=== PATIENT | female | born 1970 | race Caucasian/White ===

== ENCOUNTER 2020-11-26 17:45 | Emergency (ER) | payer OTHER, SELFPAY ==
[2020-11-26 20:55] VITALS: BP 144/63; PULSE 70; RESP 18; TEMP 35.6; O2SAT 96; BMI 39.5
[2020-11-26 22:37] VITALS: BP 128/54; PULSE 81; RESP 16; TEMP 36.7; O2SAT 96
--- NOTE | 2020-11-26 22:51 | ED_ITS ---
HPI - General Adult General Chief complaint: Eye Problems Stated complaint: EYE IRRITATION Time Seen by Provider: 11/26/20 22:35 Source: patient Mode of arrival: ambulatory Limitations: no limitations History of Present Illness HPI narrative: 50-year-old female who presents emergency department for evaluation redness, swelling and drainage of purulent material from the right eye. Patient states that she has been having swelling of her right eye since Tuesday, 3 days prior to evaluation. She states that she did have a tele medicine consult by her PCP who started her on doxycycline and she has taken 3 doses of this medication. She followed up today with [facility] and there was discussion about starting the patient on an IV antibiotic and a topical antibiotic however the patient states that they did not give her IV medications secondary to her penicillin allergy and she does not believe that a topical medication was called to pharmacy. She states that she was applying warm compresses and she states that her eye is now draining purulent material. She also states she has an itchy burning sensation in her eye. She denies any change in vision. She denies headache, nausea, vomiting, fatigue, cough fever or chills. Related Data Previous Rx's Medication Instructions Recorded erythromycin 1 appl OPHTHALMIC (EYE) TID 7 Days 11/26/20 #3.5 g Allergies Allergy/AdvReac Type Severity Reaction Status Date / Time Penicillins [PCN] Allergy Anaphylaxis Verified 11/26/20 20:55 adhesive tape AdvReac Redness of Verified 11/26/20 20:55 Skin hydrocodone AdvReac Agitated Verified 11/26/20 20:55 hydromorphone [From Dilaudid] AdvReac Nausea and Verified 11/26/20 20:55 Vomiting sulfamethoxazole AdvReac Nausea and Verified 11/26/20 20:55 [From Bactrim] Vomiting trimethoprim [From Bactrim] AdvReac Nausea and Verified 11/26/20 20:55 Vomiting Review of Systems Review of Systems: Yes all other systems are reviewed and are negative Neurologic: Reports Abnormal speech present [facility] Past Medical History [facility] Narrative: Patient states that she has pre diabetes, she denies tobacco, alcohol and drug use. Social History Social History Smoking Status: Never smoker Use of substances other than those prescribed or required for medical reasons: No Substance Use Type: Former Substance User Advance Directives: No Advance Directives Information Provided: No Physical Exam Vital Signs: Vital Signs: Last Vital Signs Temp 98.1 F 11/26/20 22:37 Pulse 81 11/26/20 22:37 Resp 16 11/26/20 22:37 BP 128/54 L 11/26/20 22:37 Pulse Ox 96 11/26/20 22:37 Body Mass Index 39.5 Const: General: cooperative Nutritional Appearance: overweight Haris entation/consciousness: oriented to person and oriented to place Limitations: no limitations HENMT: Head: Yes normal to inspection, Yes No palpable skull fracture present and Yes normocephalic Ears: hearing grossly normal bilaterally General nose exam: Normal external nose present Face and sinus: Yes normal facial exam, No sinuses nontender and Yes face symmetric Eyes: Alignment and Position: alignment normal and position normal Periorbital: periorbital findings normal Eyelids: Yes eyelid abnormality (Right upper lid is erythematous, no stye noted) and Yes other (Thick, white purulent material noted coming from the right upper eyelash) Conjunctivae: conjunctivae normal Sclerae: sclerae normal Corneas: corneas normal Pupils: Equal, round and reactive pupils present EOM: EOMs intact bilaterally Neck: Neck: Yes full ROM, Yes no lymphadenopathy and Yes no meningeal signs Chest: Chest palpation & inspection: normal inspection of the chest Resp: Effort & Inspection: normal respiratory effort Auscultation: clear to auscultation bilaterally Cardio: Rate: regular rate Rhythm: regular rhythm Heart sounds: S1 normal heart sound present, S2 normal heart sound present and no murmurs GI: Inspection: Yes normal to inspection Palpation (GI): Soft to palpation and nontender : General: Yes no CVA tenderness Back/Spine/Pelvis: Back: no CVA tenderness Neuro: General: oriented to person, oriented to place and no meningeal signs Cranial nerves: Yes CN's II-XII intact bilaterally and Yes Equal, round and reactive pupils present Cognition (Neuro): normal cognition Speech: Abnormal speech present Psych: Appearance: grossly normal Course Course Course Narrative: 50-year-old female who presents emergency department for evaluation of right eye pain with right upper eyelid swelling and purulence drainage. The patient is on doxycycline. Her exam is consistent with a eye stye which is probably draining since she has purulence material on her upper eyelash. I did discuss the management of this with the patient. Patient is to clean her eyelash 3 times a day with warm water and baby shampoo, apply warm compresses for 15-20 minutes 3 times a day and apply erythromycin ophthalmic ointment 3 times a day for 1 week. She was advised to continue taking her doxycycline as prescribed. She was given verbal and printed instructions and advised to follow-up with her doctor in 2 days for re-evaluation and return if her symptoms get worse. Discharge Plan Discharge Clinical Impression: Hordeolum externum of right eye Qualifiers: Eyelid: upper Qualified Code(s): H00.011 - Hordeolum externum right upper eyelid Patient Disposition: Home, Self-Care Instructions: [place] (ED) Additional Instructions: At this time, I do not think that you have an infection around the orbit of your eye (periorbital cellulitis) You have a very purulence (thick, yellowish) discharge suggesting that you had a stye which is now draining. Clean your upper and lower eyelash 3 times a day using a Q-tip, warm water and baby shampoo. Apply a warm compress to your right eye for 15-20 minutes 3 times a day. After doing the above 2 steps, apply erythromycin ointment to your eye. Repeat these 3 steps, 3 times a day for 1 week. Continue taking her doxycycline as prescribed by your doctor. Follow-up with your doctor in 2 days. Please return to the emergency department if your symptoms get worse or if you develop any symptoms that are concerning to you. Prescriptions: New erythromycin 5 mg/gram (0.5 %) ointment 1 appl ophthalmic (eye) TID 7 Days Qty: 3.5 RF: 0
[2020-11-26] MEDS: Erythromycin Base 0.5% Oph Oin 1 GM TUBE 1 CM EYE-RIGHT (23:24)
== END 2020-11-26 23:29 | disposition home or self-care (01) ==
PROVIDERS: Emergency Provider Emergency Medicine Emergency Medical Services; PCP Nurse Practitioner Pediatrics
DX: H00.011 Hordeolum externum right upper eyelid (principal)
CPT/HCPCS: 99283; 99284

== ENCOUNTER 2020-12-23 13:57 | Outpatient (REF) | payer OTHER, SELFPAY ==
--- NOTE | ~2020-12-23 | MM_ITS ---
EXAMINATION: MM DIAGNOSTIC DIGITAL BREAST TOMOSYNTHESIS, BILATERAL US DIAGNOSTIC ULTRASOUND BREAST, LEFT CLINICAL INFORMATION: Probable benign nodularity medial left breast. The lifetime risk of breast cancer based on the Tyrer-Cuzick Model is 12%. COMPARISON: Mammography: 12/24/2019, outside mammography 03/09/2016 ([facility]). Ultrasound left breast 12/24/2019 and 06/27/2020. TECHNIQUE: Digital breast tomosynthesis is performed in both the craniocaudal and mediolateral oblique views along with computer-aided detection (CAD). Synthesized 2D images are generated from the tomosynthesis. Additional exaggerated right CC view is provided. Ultrasound left breast is targeted to the medial breast. Grayscale imaging and color Doppler are performed without and with harmonics. Imaging performed with 12 MHz and 17 MHz transducers. FINDINGS: There are scattered areas of fibroglandular density (ACR BI-RADS breast composition Category b). Parenchymal pattern is similar to prior studies. Scattered inhomogeneous parenchymal distribution is stable. The nodularity medial left breast is stable from prior study, and in retrospect, similar to outside left CC mammography 2015. There is no developing density. There are no abnormal calcifications. The axilla and skin contours are unremarkable. Ultrasound demonstrates simple cyst mid 9:00 position approximately 0.5 cm with smooth margins and increased through-transmission of sound and no color flow. There is no solid mass or architectural abnormality or focal duct ectasia. Results are discussed with the patient at time of visit. MM/MM tomosynthesis diagnostic BI IMPRESSION: No significant changes from prior studies. Stable cyst medial left breast under 1 cm. ASSESSMENT: BI-RADS 2: Benign RECOMMENDATION: Routine annual mammography screening. This patient's information was entered into a reminder system with a target due date for their next mammogram.
== END 2020-12-23 13:58 | disposition home or self-care (01) ==
LOC: HO.MAMMO 13:57
PROVIDERS: Visit Provider Nurse Practitioner Pediatrics
DX: N64.89 Other specified disorders of breast (principal)
CPT/HCPCS: 76642; 77062; 77066

== ENCOUNTER 2021-06-30 10:08 | Outpatient (REF) | payer OTHER, SELFPAY | END 2021-06-30 10:09 | disposition home or self-care (01) | LOC: HO.LAB 10:08 | PROVIDERS: PCP Nurse Practitioner Pediatrics; Visit Provider Obstetrics & Gynecology | DX: N95.0 Postmenopausal bleeding (principal) | CPT/HCPCS: 58100; 88305 ==

== ENCOUNTER 2021-12-24 16:23 | Outpatient (REF) | payer OTHER, SELFPAY | END 2021-12-24 16:24 | disposition home or self-care (01) | LOC: HO.MAMMO 16:23 | PROVIDERS: PCP Nurse Practitioner Pediatrics; Visit Provider Nurse Practitioner Pediatrics | DX: Z12.31 Encounter for screening mammogram for malignant neoplasm of breast (principal) | CPT/HCPCS: 77063; 77067 ==

== ENCOUNTER 2024-06-28 11:15 | Outpatient (REF) | payer OTHER, SELFPAY ==
--- NOTE | ~2024-06-28 | MM_ITS ---
EXAMINATION: MM SCREENING DIGITAL BREAST TOMOSYNTHESIS, BILATERAL CLINICAL INFORMATION: Screening. Asymptomatic. COMPARISON: Mammography: Comparison is made with available priors TECHNIQUE: Digital breast mammography with tomosynthesis is performed in both the craniocaudal and mediolateral oblique views along with computer-aided detection (CAD). FINDINGS: There are scattered areas of fibroglandular density (ACR BI-RADS breast composition Category b). There are no significant masses, abnormal calcifications, or other abnormalities. MM/MM tomosynthesis screening BI IMPRESSION: No mammographic evidence of malignancy. ASSESSMENT: BI-RADS BI-RADS 1 - Negative RECOMMENDATION: Routine annual mammography screening. 1 year F/U This examination should not preclude the clinical evaluation of a suspicious palpable abnormality. This patient's information was entered into a reminder system with a target due date for their next mammogram. Electronically signed by: Ksenia Cavazos DO 07/15/2024 02:24 PM EDT
== END 2024-06-28 11:16 | disposition home or self-care (01) ==
LOC: HO.MAMMO 11:15
PROVIDERS: PCP Internal Medicine Nephrology; Visit Provider Internal Medicine Nephrology
DX: Z12.31 Encounter for screening mammogram for malignant neoplasm of breast (principal)
CPT/HCPCS: 77063; 77067

== ENCOUNTER → 2024-06-28 11:15 | Outpatient (BNV) | payer OTHER, SELFPAY | PROVIDERS: PCP Internal Medicine Nephrology; Visit Provider Internal Medicine | DX: Z12.31 Encounter for screening mammogram for malignant neoplasm of breast (principal) | CPT/HCPCS: 77063; 77067 ==

== ENCOUNTER 2025-06-17 15:00 | Outpatient (AMB) | payer OTHER, SELFPAY ==
--- NOTE | 2025-06-17 16:12 | AM.OFFWIN_ITS ---
Intake Vital Signs 06/17/25 16:16 Height 5 ft 9 in Weight 253 lb BMI 37.4 BP 132/88 Blood Pressure Location Rt brachial Position Sitting Pulse 100 Pulse Source Pulse Oximeter Temp 98.1 F Temp Source Oral Pulse Oximetry (%) 98 Oxygen Delivery Method Room Air Intake Visit Reasons: COORDINATOR OF ONLINE PROGRAMS Stung in RT ear Intake Note: pt presents with right ear redness and swelling with radiating pain to right jaw and neck after bee sting 2 days ago Allergies Penicillins (PCN) Allergy (Verified 06/17/25 16:20) Anaphylaxis adhesive tape Adverse Reaction (Verified 06/17/25 16:20) Redness of Skin hydrocodone Adverse Reaction (Verified 06/17/25 16:20) Agitated hydromorphone (From Dilaudid) Adverse Reaction (Verified 06/17/25 16:20) Nausea and Vomiting sulfamethoxazole (From Bactrim) Adverse Reaction (Verified 06/17/25 16:20) Nausea and Vomiting trimethoprim (From Bactrim) Adverse Reaction (Verified 06/17/25 16:20) Nausea and Vomiting Do you need a note to return to daycare/school/sports/work: No HPI HPI Comments History of Present Illness Details History of Present Illness - The patient is a 55-year-old female pr esenting with an insect sting to the ear resulting in cellulitis. - The incident occurred on Tuesday when a yellow jacket entered the patient's ear and stung her. - The stinger remained in the ear for a prolonged period, causing significant pain and discomfort. - The patient reports a sensation ever t o a Q-tip jabbing the ear, accompanied by anxiety. - The pain initially localized to the ea r, later extending to the jaw and neck. - The patient denies any history of susana rgic reactions to insect stings, shortness of breath, sore throat, or wheezing. - The patient attempted to alleviate sym ptoms by using a Q-tip and flushing the ear with water. Physical Exam General: Cooperative, healthy appearing, comfortable, no acute distress and well developed Orientation: Patient oriented x3 Limitations: No limitations Head: Normal to inspection Ears: Hearing grossly normal bilaterally. Small amt of dried blood in the right ear canal. TM is normal on the right. Neck: Normal visual inspection and Yes full ROM. No lymphadenopathy noted. Respiratory: Normal respiratory effort and able to speak in complete sentences. Clear to auscultation bilaterally Cardiovascular: Regular rate and rhythm. Normal S1 and S2 Skin: No rashes or lesions noted. Erythema to the right auricle. Patient was informed and verbally consented to the use of an ambient scribe for clinic note documentation during this visit. [facility] Medical History Cervical vertebral fusion COPD (chronic obstructive pulmonary disease) Family History Mother Lung cancer Brother Colon cancer Maternal Uncle Colon cancer Social History Substance Use Type: Former Substance User Female Reproductive History Menstrual Age of Menarche: 9 Review of Systems Const All systems reviewed & are unremarkable except as noted in HPI and below Physical Exam Vital Signs: Last Vital Signs Temp 98.1 F 06/17/25 16:16 Pulse 100 06/17/25 16:16 BP 132/88 06/17/25 16:16 Pulse Ox 98 06/17/25 16:16 Oxygen Delivery Method Room Air 06/17/25 16:16 BMI result Body Mass Index 37.4 Assessment & Plan Assessment & Plan (1) Bee sting reaction: Code(s): T63.441A - Toxic effect of venom of bees, accidental (unintentional), initial encounter Qualifiers: Encounter type: initial encounter Injury intent: accidental or unintentional Qualified Code(s): T63.441A - Toxic effect of venom of bees, accidental (unintentional), initial encounter (2) Cellulitis of earlobe: Code(s): H60.10 - Cellulitis of external ear, unspecified ear Qualifiers: Laterality: left Qualified Code(s): H60.12 - Cellulitis of left external ear Plan Most likely cellulitis due to bee sting plan - Prescribed ear drops containing hydrocortisone to reduce inflammation and aid in cleaning the ear. - Prescribed oral antibiotics, avoiding penicillin due to allergy, to treat the cellulitis. - Advised follow-up with ENT if symptoms do not improve within 7 to 10 days. - follow up with PCP Medications: New hydrocortisone-acetic acid 1-2 % 4 drps otic (ear) right TID 10 mL 0RF doxycycline hyclate 100 mg PO BID 14 tabs 0RF Coding Level of Care Code Est Pt Level 3 (68827) Diagnoses Bee sting reaction, accidental or unintentional, initial encounter T63.441A Encounter type: initial encounter Injury intent: accidental or unintentional Cellulitis of left earlobe H60.12 Laterality: left
[2025-06-17 16:16] VITALS: BP 132/88; PULSE 100; TEMP 36.7; O2SAT 98; BMI 37.4
--- OUTSIDE RECORDS SUMMARY | 2025-06-17 16:41 | XMS_ITS | Encounter Summary ---
Author Organization [facility] Address [address] [place] [id number] Phone Care Team Providers Care Waterproofer Name Role Phone Reyna Knight NP Primary Care Provider Encounter Details Date Type Department Care Team (Late st Contact Info) Description 08/09/2024 Procedure Pass [facility] Endoscopy Admitting Dept Virtual Department [address] [place] [address] Social History Tobacco Use Types Packs/Day Years Used Date Smoking Tobacco: Former Cigarettes 2.5 20 1 11/1991 - 09/2012 Smokeless Tobacco: Current Comments:does vape Alcohol Use Standard Drinks/Week Comments Not Currently 0 (1 standard drink = 0.6 oz pur e alcohol) Education Answer Date Recorded Are you interested in more education? Not on mirela e 02/18/2023 Are you concerned about learning? Not on file 02/18/2023 No 02/18/2023 No 02/18/2023 Digital Access Answer Date Recorded No 03/19/2023 No 03/19/2023 Reliable internet access at home? Not on file 03/19/2023 Device with a working camera? Not on file Intimate Partner Violence Answer Date R ecorded Are you denied basic needs s uch as food, clothing, or medical care? No 08/08/2024 In the past 12 months have y ou been in a relationship with a person who hurts, threatens, or tries to control you? No 08/08/2024 Are you denied basic needs s uch as food, clothing, or medical care? No 08/08/2024 In the past 12 months have y ou been in a relationship with a person who hurts, threatens, or tries to control you? No 08/08/2024 Comments No Sex and Gender Information Value Date Recorded Sex Assigned at Female 06/28/2024 3:47 PM EDT Legal Sex Female 9:38 PM EDT Gender Identity Female 06/28/2024 3:47 PM EDT Sexual Orientation Lesbian or Velasco 06/28/2024 3: 47 PM EDT documented as of this encounter Plan of Treatment Not on file documented as of this encounter Visit Diagnoses Not on filedocumented in this encounter Care Teams Waterproofer Relationship Specialty Start Date End Date Reyna Knight NP PCP - General Family Medicine 09/15/20 documented as of this encounter Additional Source Comments The information contained in this document represents components of the legal health record. It is not the complete legal health record.[facility]
--- OUTSIDE RECORDS SUMMARY | 2025-06-17 16:41 | XMS_ITS | Encounter Summary ---
Author Organization [facility] Address [address] [place] [id number] Phone Care Team Providers Care Casing Wringer Operator Name Role Phone Reyna Knight AUDITOR MEDICAL CLAIMS Primary Care Provider [phone] Reyna Knight AUDITOR MEDICAL CLAIMS Primary Care Provider [phone] Encounter Details Date Type Department Care Team (Late st Contact Info) Description 03/12/2020 Transcribe Orders Virtual Department [address] [place] [address] Reyna Knight, AUDITOR MEDICAL CLAIMS [address] [place], [place] [phone] Chronic obstructive pulmonary disease, unspecified COPD type (Primary Dx) Social History Tobacco Use Types Packs/Day Years Used Date Smoking Tobacco: Never Assessed Comments Unknown Sex and Gender Information Value Date Recorded Sex Assigned at Female 06/28/2024 3:47 PM EDT Legal Sex Female 9:38 PM EDT Gender Identity Female 06/28/2024 3:47 PM EDT Sexual Orientation Lesbian or Velasco 06/28/2024 3: 47 PM EDT documented as of this encounter Plan of Treatment Not on file documented as of this encounter Results * Pulmonary Function Test Reason for Exam: COPD; Type of PFT Test: Spirometry with bronchodilator, Lung Volumes, DLCO; Performing Location: [facility] (05/01/2020 8:47 AM EDT) [facility] FEV1 2.41 liters FVC 3.49 liters FEV1/FVC 69 % TLC 4.75 liters DLCO 19.0 ml/mmHg sec Anatomical Region Laterality Modality Other Impressions 05/01/2020 8:47 AM EDT PULMONARY FUNCTION STUDIES Full pulmonary function studies were performed on this 50 y.o. year-old female for evaluation of COPD. Review of the medical record reveals that the patient is a past smoker. Prior spirometry measurements were performed on 07/05/2016. SPIROMETRY: The FEV1 is normal at 2.41 L or 85% predicted. The FVC is normal at 3.49 L or 94% predicted. The FEV1/FVC ratio is impaired at 69%. After the administration of a bronchodilator agent, there is no technically significant change, however there is a 4% improvement in FEV1 with normalization of the FEV1/FVC ratio to 72%. FLOW-VOLUME LOOPS: Evaluation of the flow-volume loops reveals normal morphology of both the inspiratory and expiratory limbs with no significant difference when comparing the tracings performed pre- and post-bronchodilator. LUNG VOLUME MEASUREMENTS BY PLETHYSMOGRAPHY: The total lung capacity is normal at 4.75 L or 82% predicted. The functional residual capacity is mildly impaired at 1.83 L or 72% predicted. Of note, the ERV is markedly impaired, likely representing the imprint of body habitus. DIFFUSION CAPACITY: The diffusion capacity is mildly impaired at 19.0 mL/mmHg sec or 65% predicted, however this normalizes to 99% predicted when adjusted for alveolar volume. COMPARISON TO PRIOR STUDIES: When comparing to prior studies, there has been no significant change in spirometry measurements over the past 4 years. Resting oxygen saturation is 98% on room air. IMPRESSION: Abnormal pulmonary function studies as evidenced by mild airflow limitation in baseline spirometry which normalizes postbronchodilator despite the absence of a significant bronchodilator response. Lung volumes reveal a normal total lung capacity with impairments in FRC, RV and ERV which, in the context of obesity, may be secondary to extrapulmonary restriction and the imprint of body habitus. There is a mild impairment in diffusion capacity which, in this clinical context, may be secondary to emphysema, pulmonary vascular disease, interstitial lung disease and/or anemia. Reyna Knight NP PFT ORDERABLES Final Result documented in this encounter Visit Diagnoses Diagnosis Chronic obstructive pulmonary disease, unspecified COPD type- Primary Chronic obstructive pulmonary disease, unspecified COPD type documented in this encounter Care Teams Casing Wringer Operator Relationship Specialty Start Date End Date Reyna Knight NP PCP - General Family Medicine 04/15/20 09/14/20 Reyna Knight NP PCP - General Family Medicine 09/15/20 documented as of this encounter Additional Source Comments The information contained in this document represents components of the legal health record. It is not the complete legal health record.[facility]
--- OUTSIDE RECORDS SUMMARY | 2025-06-17 16:41 | XMS_ITS | Encounter Summary ---
Author Organization [facility] Address [address] [place] [phone] Phone Care Team Providers Care Plastic Surgeon Name Role Phone Reyna Knight NP Primary Care Provider [phone] Reyna Knight SHEET METAL SUPERINTENDENT Primary Care Provider [phone] Encounter Details Date Type Department Care Team (Late st Contact Info) Description 04/24/2020 Transcribe Orders [facility] [address] [place] [address] Reyna Knight NP [address] [place], [place] [phone] Social History Tobacco Use Types Packs/Day Years [...] on filedocumented in this encounter Care Teams Plastic Surgeon Relationship Specialty Start Date End Date Reyna Knight NP PCP - General Family Medicine 04/15/20 09/14/20 Reyna Knight NP PCP - General Family Medicine 09/15/20 documented as of this encounter Additional Source Comments The information contained in this document represents components of the legal health record. It is not the complete legal health record.[facility]
--- OUTSIDE RECORDS SUMMARY | 2025-06-17 16:41 | XMS_ITS | Clinical Summary ---
Author Organization [facility] Address [address] [place] [address] Care Team Providers Care Pricing Associate Name Role Phone Juan Quinones DO Primary Care Provider Surgical History Surgery Date Site/Laterality Comments OTHER SURGICAL HISTORY PROCEDURE: PA LAMNOTMY INCL W/DCMPRSN NRV ROOT 1 INTRSPC CERVC NOSE SURGERY PROCEDURE: PA UNLISTED PROCEDURE NOSE; COMMENT: polyps 13 procedures COLONOSCOPY 11/29/2006 PROCEDURE: PA COLONOSCOPY FLX DX W/COLLJ SPEC WHEN PFRMD; COMMENT: Dr. Ni; negative exam. BACK SURGERY 08/05/2014 PROCEDURE: HISTORICAL BACK SURGERY; COMMENT: Lumbar fusion Medical History Medical History Date Comments Cervical spondylosis without myelopathy DX:Cervical spondylosis with out myelopathy Cervicalgia 12/30/2006 DX:Cervicalgia Other unspecified back disorder 07/07/2006 DX:Other unspecified back disorder Unspecified asthma(493.90) 07/07/2006 DX:Un specified asthma(493.90) Depression 02/20/09 DX:Depression Lumbar disc herniation with radiculopathy DX:Lumbar disc herniation wi th radiculopathy Family History Medical History Relation Name Comments Colon polyps Aunt 1 maternal Diabetes Maternal Grandmother Lung cancer Mother maternal uncles x 3 as well with lung ca Colon cancer Uncle 1 maternal Relation Name Status Comments Aunt 1 Aunt 2 Brother Alive Maternal Grandmother Mother (Age 60) lung cance r,colon polyps Sister Alive Uncle 1 Uncle 2 Social History Tobacco Use Types Packs/Day Years Used Date Smoking Tobacco: Every Day Cigarettes Smokeless Tobacco: Never Alcohol Use Standard Drinks/Week Comments No 0 (1 standard drink = 0.6 oz pur e alcohol) Comments Unknown Sex and Gender Information Value Date Recorded Sex Assigned at Not on file Legal Sex Female 10:35 PM EST Gender Identity Not on file Sexual Orientation Not on file Obstetrics History Last Filed Vital Signs Vital Sign Reading Time Taken Comments Blood Pressure - - Pulse - - Temperature - - Respiratory Rate - - Oxygen Saturation - - Inhaled Oxygen Concentration - - Weight - - Height 175.3 cm (5' 9 ) 03/06/2024 2:19 PM EDT Body Mass Index - - Plan of Treatment Health Maintenance Due Date Last Done Comments Breast Cancer Screening 1970 Hepatitis B Vaccines (1 of 3 - 19+ 3-dose series) 01/03/1987 Cervical Cancer Screening: P ap Smear 01/03/1989 Pneumococcal Vaccine: 50+ Years (2 of 2 - PCV) 08/24/2007 08/24/2006 DTaP,Tdap,and Td Vaccines (2 - Td or Tdap) 08/24/2016 08/24/2006 Zoster Vaccines (1 of 2) 01/03/2018 Colorectal Cancer Screening: Colonoscopy 05/22/2024 HIV Screening 05/22/2024 Hepatitis C Screening 05/22/2024 Social Influencers of Health Screening 05/22/2024 COVID-19 Vaccine (1 - 2023-2 5 season) 2024 Depression Screening 10/24/2024 Influenza Vaccine (#1) 2025 0, 10/13/2009, 10/13/2009 HIB Vaccines Aged Out No longer eligi ble based on patient's age to complete this topic HPV Vaccines Aged Out No longer eligi ble based on patient's age to complete this topic Hepatitis A Vaccines Aged Out No long er eligible based on patient's age to complete this topic IPV Vaccines Aged Out No longer eligi ble based on patient's age to complete this topic MMR Vaccines Aged Out No longer eligi ble based on patient's age to complete this topic Meningococcal ACWY Vaccine Aged Out N o longer eligible based on patient's age to complete this topic Meningococcal B Vaccine Aged Out No l onger eligible based on patient's age to complete this topic RSV Immunization Patients Under 20 months Aged Out No longer eligible b ased on patient's age to complete this topic Varicella Vaccines Aged Out No longer eligible based on patient's age to complete this topic Care Teams Pricing Associate Relationship Specialty Start Date End Date Juan Quinones DO [address] [facility] [id number] [place] [address] [facility] - General 03/14/24
--- OUTSIDE RECORDS SUMMARY | 2025-06-17 16:41 | XMS_ITS | Encounter Summary ---
Author Organization [facility] Address [address] [place] [address] Phone Care Team Providers Care Coding Clerks Supervisor Name Role Phone Reyna Knight SCHOOL CROSSING GUARD Primary Care Provider [phone] Reyna Knight SCHOOL CROSSING GUARD Primary Care Provider [phone] Encounter Details Date Type Department Care Team (Late st Contact Info) Description 05/16/2020 Procedure Pass [facility] Endoscopy Admitting Dept Virtual Department [address] [place] [address] Social History Tobacco Use Types Packs/Day Years Used Date Smoking Tobacco: Former Cigarettes 2.5 20 1 11/1991 - 09/2012 Smokeless Tobacco: Never Comments:does vape Alcohol Use Standard Drinks/Week Comments Not Currently 0 (1 standard drink = 0.6 oz pur e alcohol) Comments No Sex and Gender Information Value [...] on filedocumented in this encounter Care Teams Coding Clerks Supervisor Relationship Specialty Start Date End Date Reyna Knight, SCHOOL CROSSING GUARD PCP - General Family Medicine 04/15/20 09/14/20 Reyna Knight NP PCP - General Family Medicine 09/15/20 documented as of this encounter Additional Source Comments The information contained in this document represents components of the legal health record. It is not the complete legal health record.[facility]
--- OUTSIDE RECORDS SUMMARY | 2025-06-17 16:41 | XMS_ITS | Clinical Summary ---
Author Organization [facility] Address [address] [place] [address] Phone Care Team Providers Care Electrical Engineering Professor Name Role Phone Nieves Knight NP Primary Care Provider [phone] Allergies Active Allergy Reactions Criticality Noted Date Comments Sulfamethoxazole-Trimet hoprim Nausea and/or Vomiting 05/13/2020 Hydromorphone Nausea and/or Vomiting 05/13/2020 Penicillins Anaphylaxis High 05/09/2020 Adhesive 05/09/2020 Burn skin Hydrocodone-Acetaminoph en Other (See Comments) 05/13/2020 felt homicidal Medications DULoxetine (CYMBALTA) 60 MG capsule Take 120 mg by mouth daily. Active albuterol 90 mcg/actuation inhaler Inhale 2 puffs into the lungs every 6 (six) hours as needed for wheezing. Active melatonin 1 mg Tab Take 3 mg by mouth nightly at bedtime. Active meloxicam (MOBIC) 15 MG tablet Take 15 mg by mouth daily. 07/20/2024 Active tiZANidine (ZANAFLEX) 4 MG tablet Take 8 mg by mouth 3 (three) times a day. 07/20/2024 Active omeprazole (PRILOSEC) 20 MG tablet Take 20 mg by mouth daily. Active Active Problems Problem Noted Date Diagnosed Date Asthma-COPD overlap syndrome 05/09/2020 Social History Tobacco Use Types Packs/Day Years Used Date Smoking Tobacco: Former Cigarettes 2.5 20 1 11/1991 - 09/2012 Smokeless Tobacco: Current Tobacco Cessation:Ready to Q uit: Not Asked; Counseling Given: Not Answered Comments:does vape Alcohol Use Standard Drinks/Week Comments [...] or [place] 06/28/2024 3: 47 PM EDT Last Filed Vital Signs Vital Sign Reading Time Taken Comments Blood Pressure 103/73 11/21/2020 8:53 AM EST pt reported Pulse 72 11/21/2020 8:53 AM EST pt re ported Temperature 36.2 C (97.2 F) 05/16/2020 8:34 AM EDT Respiratory Rate 16 05/16/2020 8:32 AM EDT Oxygen Saturation 97% 06/06/2020 2:48 PM EDT Inhaled Oxygen Concentration - - Weight 113.9 kg (251 lb) 08/08/2024 10:05 AM EDT Height 174 cm (5' 8.5 ) 08/08/2024 10:05 AM EDT Body Mass Index 37.61 08/08/2024 10:05 AM EDT Plan of Treatment Health Maintenance Due Date Last Done Comments DEPRESSION SCREENING 1980 HEPATITIS C SCREENING 01/03/1986 HIV ONE-TIME SCREENING (18-6 5 YEARS) 01/03/1986 PNEUMOCOCCAL VACCINES (50+ years) (1 of 2 - PCV) 01/03/1987 MAMMOGRAM 2008 COLOGUARD 01/03/2013 FIT TEST 01/03/2013 FOBT 01/03/2013 SIGMOIDOSCOPY 01/03/2013 VIRTUAL COLONOSCOPY 01/03/2013 LUNG CANCER SCREENING (LDCT Only) 01/03/2018 ZOSTER VACCINES (1 of 2) 01/03/2018 SCREENING FOR DIABETES 05/02/2023 05/02/2020 LIPID PANEL 06/27/2023 06/27/2018 Adult Td,Tdap Booster 07/10/2023 07/10/2013 PAP SMEAR 05/28/2024 05/28/2021 COVID-19 VACCINE (3 - 2023-2 5 season) 2024 03/07/2021, 02/06/2021 COLONOSCOPY 05/16/2030 05/16/2020 COLORECTAL CANCER SCREENING 05/16/2030 HEPATITIS A VACCINES Aged Out No long er eligible based on patient's age to complete this topic HIB VACCINES Aged Out No longer eligi ble based on patient's age to complete this topic MENINGOCOCCAL VACCINES (ACWY) Aged Out No longer eligible based on patient's age to complete this topic MENINGOCOCCAL VACCINES (B) Aged Out N o longer eligible based on patient's age to complete this topic Medical Devices Not on file Procedures Procedure Name Priority Date/Time Associated Diagnosis Comments PAP TEST Routine 05/28/2021 12:00 AM EDT ENDOSCOPY, COLON 05/16/2020 7:17 AM EDT from Last 3 Months or Most Recently Relevant to Health Maintenance Results * Pap Smear (05/28/2021 12:00 AM EDT) 05/28/2021 05/29/2021 8:4 5 AM EDT Narrative SEE NARRATIVE - 06/02/2021 1:12 PM EDT [address] [address] Managed Care Manager: Estephanie Amos MD CONTENT PRODUCTION SPECIALIST Cytology Report FINAL DIAGNOSIS A. PAP SMEAR (SUREPATH) CE: SPECIMEN ADEQUACY: Satisfactory for evaluation; transformation zone present. INTERPRETATION: NEGATIVE FOR INTRAEPITHELIAL LESION OR MALIGNANCY. Electronically Signed Out By: FAROOQ Cool(ASCP) FAROOQ Reid(ASCP) The Pap test is a screening test primarily for squamous cancers and precursors and has associated false-negative and false-positive results. New technologies such as liquid-based preparations may decrease but will not eliminate all false-negative results. Regular sampling and follow-up of unexplained clinical signs and symptoms are recommended to minimize false negative results. PROCEDURES/ADDENDA HPV Testing (Requested) Ordered Date: 05/29/2021 A. PAP SMEAR (SUREPATH) CE: Human Papilloma Virus Test Negative for high-risk human papillomavirus types 16, 18, 45 and the Other high risk probe set (Includes 31, 33, 35, 39, 51, 52, 56, 58, 59, 66, 68) by [employer]aceutical[employer] HR-HPV analysis. Clinical correlation is advised. This HPV test was performed at [facility], [address] [place] [address]. This test has been FDA approved for SurePath cervical cytology specimens. The accuracy and precision of this test for all other specimen sources has been verified in the Cytopathology Laboratory of the [facility] and has not been cleared or approved by the U.S. Food and Drug Administration. Clinical correlation is advised. CLINICAL HISTORY Date of Last Menstrual Period: Not Provided Menstrual History: Unknown Other Clinical Conditions: Screening Pap SPECIMEN SOURCE A: PAP SMEAR (SUREPATH) CE Patient Name: LISBETH CHUN : 1970 (Age: 51) Sex: F Institution: [facility] Location: [facility] Date of Collection: 05/28/2021 Date of Reported: 06/02/2021 13:12 Results to: Nieves Knight MSN, BSN us Nieves Knight WARPING MILL OPERATOR CYTOLOGY ORDERABLES Final Re sult SEE NARRATIVE * ENDOSCOPY, COLON (05/16/2020 7:17 AM EDT) Narrative Transcriptions Miladis Ochoa MD - 05/16/2020 7:17 AM EDT Patient Name: Lisbeth Adiel Attending MD:: MILADIS OCHOA MD Procedure Date: 05/16/2020 7:17 AM Date of : 1970 Age: 50 Admit Type: Outpatient Gender: Female Room: [place] [address] Referring MD: NIEVES KNIGHT MD Exam Type: Colonoscopy Indications: Colon cancer screening in patient at increased risk: Family history of colorectal cancer in multiple 2nd degree relatives, Last colonoscopy about: 2012, Last colonoscopy: date unknown (unable to locate last colonoscopy report), Incidental constipation noted Medications: Propofol per Anesthesia Procedure: Informed consent was obtained from the patient after discussion of the indications, limitations, alternatives, benefits, and risks of the procedure. Risks specifically discussed include but are not limited to medication reactions, missed lesions, bleeding, perforation, or the need for emergentsurgery. Throughout the procedure, the patient's bloodpressure, pulse, end-tidal CO2, and oxygen saturations were monitored continuously. The Olympus adult variable colonoscope [id number] #1was introduced through the anus and advanced to thececum, identified by appendiceal orifice and ileocecalvalve. The colonoscopy was performed without difficulty.The patient tolerated the procedure well. The quality of the bowel preparation was good except the cecum was fair. The bowel preparation used was GoLYTELY viasplit dose instruction. (Not fully consumed,) Complications: No immediate complications. Estimated blood loss:None. Findings: The perianal and digital rectal examinations were normal. Pertinent negatives include normal prostate (size, shape, and consistency). The entire examined colon appeared normal on directand retroflexion views. Impression: - The entire examined colon is normal on direct and retroflexion views. - No specimens collected. Recommendation: - Repeat colonoscopy in 5 years for screeningpurposes. - A Golytly bowel preparation, fully consumed, is recommended for future exams, as well. MILADIS OCHOA MD 05/16/2020 8:39:24 AM This report has been signed electronically. Number of Addenda: 0 Note Initiated On: 05/16/2020 7:17 AM Procedure Code(s): --- Professional --- 61024, Colonoscopy, flexible; diagnostic, including collection of specimen(s) by brushing or washing, when performed (separateprocedure) --- Technical --- 63171, Colonoscopy, flexible; diagnostic, including collection of specimen(s) by brushing or washing, when performed (separateprocedure) Diagnosis Code(s): --- Professional --- Z80.0, Family history of malignant neoplasm of digestive organs --- Technical --- Z80.0, Family history of malignant neoplasm of digestive organs CPT copyright 2018 [employer]. All rights reserved. The codes documented in this report are preliminary and upon treadle cut off saw operator reviewmay be revised to meet current compliance requirements. Procedure Date: 05/16/2020 7:17:[address] [place] [address] Nieves Knight NP GI PROCEDURE ORDERABLES Edit ed Result - Final from Last 3 Months or Most Recently Relevant to Health Maintenance Insurance [employer]MIN[employer]AT[employer] ADMINISTRATORS [employer] ADMINISTRATORS [employer] BENEFITS [employer] [address] [place] [address] [employer] [facility] ADMINISTRATORS [facility] [employer] [facility] ADMINISTRATORS Care Teams Electrical Engineering Professor Relationship Specialty Start Date End Date Nieves Knight NP PCP - General Family Medicine 09/15/20 Additional Source Comments The information contained in this document represents components of the legal health record. It is not the complete legal health record.[facility]
== END 2025-06-17 16:49 | disposition home or self-care (01) ==
PROVIDERS: Visit Provider Physician Assistant Medical
DX: T63.441A Toxic effect of venom of bees, accidental (unintentional), initial encounter (principal); H60.12 Cellulitis of left external ear

== ENCOUNTER 2025-07-10 15:35 | Outpatient (REF) | payer OTHER, SELFPAY ==
--- NOTE | ~2025-07-10 | MM_ITS ---
EXAMINATION: MM SCREENING DIGITAL BREAST TOMOSYNTHESIS, BILATERAL CLINICAL INFORMATION: Screening. Asymptomatic. COMPARISON: Mammography: Comparison is made with available priors TECHNIQUE: Digital breast mammography with tomosynthesis is performed in both the craniocaudal and mediolateral oblique views along with computer-aided detection (CAD). FINDINGS: There are scattered areas of fibroglandular density (ACR BI-RADS breast composition Category b). There are no significant masses, abnormal calcifications, or other abnormalities. MM/MM tomosynthesis screening BI IMPRESSION: No mammographic evidence of malignancy. ASSESSMENT: BI-RADS BI-RADS 1 - Negative RECOMMENDATION: Routine annual mammography screening. 1 year F/U This examination should not preclude the clinical evaluation of a suspicious palpable abnormality. This patient's information was entered into a reminder system with a target due date for their next mammogram. Electronically signed by: Ksenia Cavazos DO 07/15/2025 02:25 PM EDT
--- OUTSIDE RECORDS SUMMARY | 2025-07-10 18:55 | XMS_ITS | Encounter Summary ---
Author Organization [facility] Address [address] [place] [address] Phone Care Team Providers Care Sprinkler Fitter Helper Name Role Phone Reyna Knight FOUNDRY TECHNICIAN Primary Care Provider [phone] Reyna Knight FOUNDRY TECHNICIAN Primary Care Provider [phone] Encounter Details Date Type Department Care Team (Late st Contact Info) Description 03/12/2020 Transcribe Orders Virtual Department [address] [place] [address] Reyna Knight, FOUNDRY TECHNICIAN [address] [place], [place] [phone] Chronic obstructive pulmonary disease, unspecified COPD type [...] with bronchodilator, Lung Volumes, DLCO; Performing Location: [facility] (05/01/2020 8:47 AM EDT) [facility] FEV1 2.41 liters FVC 3.49 liters FEV1/FVC [...] type documented in this encounter Care Teams Sprinkler Fitter Helper Relationship Specialty Start Date End Date Reyna Knight NP PCP - General Family Medicine 04/15/20 09/14/20 Reyna Knight NP PCP - General Family Medicine 09/15/20 documented as of this encounter Additional Source Comments The information contained in this document represents components of the legal health record. It is not the complete legal health record.[facility]
--- OUTSIDE RECORDS SUMMARY | 2025-07-10 18:55 | XMS_ITS | Encounter Summary ---
Author Organization [facility] Address [address] [place] [address] Phone Care Team Providers Care Greenhouse Instructor Name Role Phone Reyna Knight STUDY LEAD Primary Care Provider [phone] Reyna Knight STUDY LEAD Primary Care Provider [phone] Encounter Details Date Type Department Care Team (Late st Contact Info) Description 05/16/2020 Procedure Pass [facility] Endoscopy Admitting Dept Virtual Department [address] [place] [address] Social History Tobacco Use Types Packs/Day Years [...] on filedocumented in this encounter Care Teams Greenhouse Instructor Relationship Specialty Start Date End Date Reyna Knight, STUDY LEAD PCP - General Family Medicine 04/15/20 09/14/20 Reyna Knight NP PCP - General Family Medicine 09/15/20 documented as of this encounter Additional Source Comments The information contained in this document represents components of the legal health record. It is not the complete legal health record.[facility]
--- OUTSIDE RECORDS SUMMARY | 2025-07-10 18:55 | XMS_ITS | Encounter Summary ---
Author Organization [facility] Address [address] [place] [address] Phone Care Team Providers Care Hide Buffer Name Role Phone Reyna Knight NP Primary Care Provider [phone] Reyna Knight CRATE LINER Primary Care Provider [phone] Encounter Details Date Type Department Care Team (Late st Contact Info) Description 04/24/2020 Transcribe Orders [facility] [address] [place] [address] Reyna Knight NP [address] [place], [place] [phone] Social History Tobacco Use Types Packs/Day Years [...] on filedocumented in this encounter Care Teams Hide Buffer Relationship Specialty Start Date End Date Reyna Knight NP PCP - General Family Medicine 04/15/20 09/14/20 Reyna Knight NP PCP - General Family Medicine 09/15/20 documented as of this encounter Additional Source Comments The information contained in this document represents components of the legal health record. It is not the complete legal health record.[facility]
--- OUTSIDE RECORDS SUMMARY | 2025-07-10 18:55 | XMS_ITS | Clinical Summary ---
Author Organization [facility] Address [address] [place] [address] Phone Care Team Providers Care Sisal Picker Name Role Phone Nieves Knight NP Primary Care Provider Allergies Active Allergy Reactions Criticality Noted Date [...] Booster 07/10/2023 07/10/2013 PAP SMEAR 05/28/2024 05/28/2021 INFLUENZA VACCINE (#1) 2025 , 11/08/2018, 07/10/2013 COVID-19 VACCINE (3 - 2024-2 6 season) 2025 03/07/2021, 02/06/2021 COLONOSCOPY 05/16/2030 05/16/2020 COLORECTAL CANCER [...] SEE NARRATIVE - 06/02/2021 1:12 PM EDT [address] [address] Label Printing Machinist: Estephanie Amos MD WEATHER ALGORITHM SCIENTIST Cytology Report FINAL DIAGNOSIS A. PAP SMEAR [...] 52, 56, 58, 59, 66, 68) by [employer] HR-HPV analysis. Clinical correlation is advised. This HPV test was performed at [facility], [address] [place] [address]. This test has been FDA approved for SurePath cervical cytology specimens. The accuracy and precision of this test for all other specimen sources has been verified in the Cytopathology Laboratory of the [facility] and has not been cleared or approved by the U.S. Food and Drug Administration. Clinical correlation is advised. CLINICAL HISTORY Date of Last Menstrual Period: Not Provided Menstrual History: Unknown Other Clinical Conditions: Screening Pap SPECIMEN SOURCE A: PAP SMEAR (SUREPATH) CE Patient Name: BETHANY CHUN : 1970 (Age: 51) Sex: F Institution: [facility] Location: [facility] Date of Collection: 05/28/2021 Date of Reported: 06/02/2021 13:12 Results to: Nieves Knight MSN, BSN us Nieves Knight TRANSVERSE ABDOMINAL MUSCLE SURGEON CYTOLOGY ORDERABLES Final Re sult SEE NARRATIVE * ENDOSCOPY, COLON (05/16/2020 7:17 AM EDT) Narrative Transcriptions Miladis Ochoa MD - 05/16/2020 7:17 AM EDT Patient Name: Bethany Chun Attending MD:: MILADIS OCHOA MD Procedure Date: 05/16/2020 7:17 AM Date of : 1970 Age: 50 Admit Type: Outpatient Gender: Female Room: [place] [address] Referring MD: NIEVES KNIGHT MD Exam Type: [...] monitored continuously. The Olympus adult variable colonoscope [id number] #1was introduced through the anus and advanced [...] 7:17 AM Procedure Code(s): --- Professional --- 53852, Colonoscopy, flexible; diagnostic, including collection of specimen(s) by brushing or washing, when performed (separateprocedure) --- Technical --- 12273, Colonoscopy, flexible; diagnostic, including collection of specimen(s) by brushing or washing, when performed (separateprocedure) Diagnosis Code(s): --- Professional --- Z80.0, Family history of malignant neoplasm of digestive organs --- Technical --- Z80.0, Family history of malignant neoplasm of digestive organs CPT copyright 2018 [employer]. All rights reserved. The codes documented in this report are preliminary and upon second time worker reviewmay be revised to meet current compliance requirements. Procedure Date: 05/16/2020 7:17:48 AM [address] [place] [address] Nieves Knight NP GI PROCEDURE ORDERABLES Edit ed Result - Final from Last 3 Months or Most Recently Relevant to Health Maintenance Insurance [employer]ENEF[employer]MINIST[employer] [address] [address] [employer] ADMINISTRATORS Member Subscriber Plan / Payer ( fective 2023-) Name:Bethany Chun Relation to Subscriber:Self Name:Bethany Chun Payer ID:[id number] (NAIC) Type:PPO Address: [place] [id number] [place] [email or web address] BENEFITS ADMINISTRATORS [employer]EF[employer] ADMINISTRATORS [employer] ADMINISTRATORS [employer]EF[employer] ADMINISTRATORS Care Teams Sisal Picker Relationship Specialty Start Date End Date Nieves Knight NP PCP - General Family Medicine 09/15/20 Additional Source Comments The information contained in this document represents components of the legal health record. It is not the complete legal health record.[facility]
--- OUTSIDE RECORDS SUMMARY | 2025-07-10 18:56 | XMS_ITS | Encounter Summary ---
Author Organization [facility] Address [address] [place] [address] Phone Care Team Providers Care Cylinder Die Machine Operator Name Role Phone Reyna Knight NP Primary Care Provider Encounter Details Date Type Department Care Team (Late st Contact Info) Description 08/09/2024 Procedure Pass [facility] Endoscopy Admitting Dept Virtual Department [address] [place] [address] Social History Tobacco Use Types Packs/Day Years [...] on filedocumented in this encounter Care Teams Cylinder Die Machine Operator Relationship Specialty Start Date End Date Reyna Knight NP PCP - General Family Medicine 09/15/20 documented as of this encounter Additional Source Comments The information contained in this document represents components of the legal health record. It is not the complete legal health record.[facility]
== END 2025-07-10 15:36 | disposition home or self-care (01) ==
LOC: HO.MAMMO 15:35
PROVIDERS: Visit Provider Internal Medicine Nephrology
DX: Z12.31 Encounter for screening mammogram for malignant neoplasm of breast (principal)
CPT/HCPCS: 77063; 77067

== ENCOUNTER → 2025-07-10 15:45 | Outpatient (BNV) | payer OTHER, SELFPAY | PROVIDERS: Visit Provider Internal Medicine | DX: Z12.31 Encounter for screening mammogram for malignant neoplasm of breast (principal) | CPT/HCPCS: 77063; 77067 ==

== ENCOUNTER 2025-08-18 20:55 | Emergency (ER) | payer OTHER, SELFPAY ==
--- NOTE | ~2025-08-18 | XR_ITS ---
CLINICAL HISTORY: sob cough 2 view chest x-ray Comparison: None provided Findings: The lungs are clear. Normal size heart. No acute fracture. IMPRESSION: 1. No acute findings. This document has been electronically signed by: Dee Regalado MD on 08/18/2025 22:48:55
[2025-08-18 21:03] VITALS: PULSE 96; RESP 18; TEMP 36.6; O2SAT 99; BMI 40.0
[2025-08-18 21:40] LABS: COVID-19 Test Negative (Negative); IDNOW Serial# 55D5AD1C; IDNOW Serial# 6674DD1D; Influenza B2 Negative (Negative)
--- OUTSIDE RECORDS SUMMARY | 2025-08-18 21:42 | XMS_ITS | Encounter Summary ---
Author Organization [facility] Address [address] [place] [id number] Phone Care Team Providers Care Framing Specialist Name Role Phone Reyna Knight NP Primary Care Provider Encounter Details Date Type Department Care Team (Late st Contact Info) Description 08/09/2024 Procedure Pass [facility] Endoscopy Admitting Dept Virtual Department [address] [place] [address] Social History Tobacco Use Types Packs/Day Years [...] on filedocumented in this encounter Care Teams Framing Specialist Relationship Specialty Start Date End Date Reyna Knight NP PCP - General Family Medicine 09/15/20 documented as of this encounter Additional Source Comments The information contained in this document represents components of the legal health record. It is not the complete legal health record.[facility]
--- OUTSIDE RECORDS SUMMARY | 2025-08-18 21:42 | XMS_ITS | Encounter Summary ---
Author Organization [facility] Address [address] [place] [address] Phone Care Team Providers Care Corporate Event Planner Name Role Phone Reyna Knight AREA FIELD PERSON Primary Care Provider [phone] Reyna Knight AREA FIELD PERSON Primary Care Provider [phone] Encounter Details Date Type Department Care Team (Late st Contact Info) Description 03/12/2020 Transcribe Orders Virtual Department [address] [place] [address] Reyna Knight, AREA FIELD PERSON [address] [place], [place] [phone] Chronic obstructive pulmonary disease, unspecified COPD type [...] with bronchodilator, Lung Volumes, DLCO; Performing Location: [facility] (05/01/2020 8:47 AM EDT) [facility] FEV1 2.41 liters FVC 3.49 liters FEV1/FVC [...] type documented in this encounter Care Teams Corporate Event Planner Relationship Specialty Start Date End Date Reyna Knight NP PCP - General Family Medicine 04/15/20 09/14/20 Reyna Knight NP PCP - General Family Medicine 09/15/20 documented as of this encounter Additional Source Comments The information contained in this document represents components of the legal health record. It is not the complete legal health record.[facility]
--- OUTSIDE RECORDS SUMMARY | 2025-08-18 21:42 | XMS_ITS | Encounter Summary ---
Author Organization [facility] Address [address] [place] [address] Phone Care Team Providers Care Pet Care Assistant Name Role Phone Reyna Knight NP Primary Care Provider [phone] Reyna Knight MEAL COOK Primary Care Provider [phone] Encounter Details Date Type Department Care Team (Late st Contact Info) Description 04/24/2020 Transcribe Orders [facility]FT [facility] [address] [place] [address] Reyna Knight NP [address] [place], [place] [phone] Social History Tobacco Use Types Packs/Day Years [...] on filedocumented in this encounter Care Teams Pet Care Assistant Relationship Specialty Start Date End Date Reyna Knight NP PCP - General Family Medicine 04/15/20 09/14/20 Reyna Knight NP PCP - General Family Medicine 09/15/20 documented as of this encounter Additional Source Comments The information contained in this document represents components of the legal health record. It is not the complete legal health record.[facility]
--- OUTSIDE RECORDS SUMMARY | 2025-08-18 21:42 | XMS_ITS | Encounter Summary ---
Author Organization [facility] Address [address] [place] [address] Phone Care Team Providers Care Source Water Protection Specialist Name Role Phone Reyna Knight COMMUNITY SERVICE DIRECTOR Primary Care Provider [phone] Reyna Knight COMMUNITY SERVICE DIRECTOR Primary Care Provider [phone] Encounter Details Date Type Department Care Team (Late st Contact Info) Description 05/16/2020 Procedure Pass [facility] Endoscopy Admitting Dept Virtual Department [address] [place] [address] Social History Tobacco Use Types Packs/Day Years [...] on filedocumented in this encounter Care Teams Source Water Protection Specialist Relationship Specialty Start Date End Date Reyna Knight, COMMUNITY SERVICE DIRECTOR PCP - General Family Medicine 04/15/20 09/14/20 Reyna Knight NP PCP - General Family Medicine 09/15/20 documented as of this encounter Additional Source Comments The information contained in this document represents components of the legal health record. It is not the complete legal health record.[facility]
--- OUTSIDE RECORDS SUMMARY | 2025-08-18 21:42 | XMS_ITS | Clinical Summary ---
Author Organization [facility] Address [address] [place] [address] Phone Care Team Providers Care Desktop Operator Name Role Phone Nieves Knight NP Primary Care Provider [phone] Allergies Active Allergy Reactions Criticality Noted Date [...] 01/03/2013 LUNG CANCER SCREENING (LDCT Only) 01/03/2018 RSV VACCINE (1 - Risk 50-74 years 1-dose series) 01/03/2018 ZOSTER VACCINES (1 of 2) 01/03/2018 [...] SEE NARRATIVE - 06/02/2021 1:12 PM EDT [address] [address] Tissue Technologist: Estephanie Amos MD INTERVENTIONAL NURSE Cytology Report FINAL DIAGNOSIS A. PAP SMEAR [...] 52, 56, 58, 59, 66, 68) by [employer] Onclarity HR-HPV analysis. Clinical correlation is advised. This HPV test was performed at [facility], [address] [place] [address]. This test has been FDA approved for SurePath cervical cytology specimens. The accuracy and precision of this test for all other specimen sources has been verified in the Cytopathology Laboratory of the [facility] and has not been cleared or approved by the U.S. Food and Drug Administration. Clinical correlation is advised. CLINICAL HISTORY Date of Last Menstrual Period: Not Provided Menstrual History: Unknown Other Clinical Conditions: Screening Pap SPECIMEN SOURCE A: PAP SMEAR (SUREPATH) CE Patient Name: BETHANY CHUN : 1970 (Age: 51) Sex: F Institution: [facility] Location: [facility] Date of Collection: 05/28/2021 Date of Reported: 06/02/2021 13:12 Results to: Nieves Knight MSN, BSN us Nieves Knight UPPER CUTTER MACHINE CYTOLOGY ORDERABLES Final Re sult SEE NARRATIVE * ENDOSCOPY, COLON (05/16/2020 7:17 AM EDT) Narrative Transcriptions Miladis Ochoa MD - 05/16/2020 7:17 AM EDT Patient Name: Bethany Adiel Attending MD:: MILADIS OCHOA MD Procedure Date: 05/16/2020 7:17 AM Date of : 1970 Age: 50 Admit Type: Outpatient Gender: Female Room: [place] [address] Referring MD: NIEVES KNIGHT MD Exam Type: [...] monitored continuously. The Olympus adult variable colonoscope [id number] #1was introduced through the anus and advanced [...] 7:17 AM Procedure Code(s): --- Professional --- 09333, Colonoscopy, flexible; diagnostic, including collection of specimen(s) by brushing or washing, when performed (separateprocedure) --- Technical --- 14770, Colonoscopy, flexible; diagnostic, including collection of specimen(s) by brushing or washing, when performed (separateprocedure) Diagnosis Code(s): --- Professional --- Z80.0, Family history of malignant neoplasm of digestive organs --- Technical --- Z80.0, Family history of malignant neoplasm of digestive organs CPT copyright 2018 [employer]. All rights reserved. The codes documented in this report are preliminary and upon manager of marketing reviewmay be revised to meet current compliance requirements. Procedure Date: 05/16/2020 7:17:[address] [place] [address] Nieves Knight NP GI PROCEDURE ORDERABLES Edit ed Result - Final from Last 3 Months or Most Recently Relevant to Health Maintenance Insurance [employer] [place] [address] [employer] [place] [address] [employer] Care Teams Desktop Operator Relationship Specialty Start Date End Date Nieves Knight NP PCP - General Family Medicine 09/15/20 Additional Source Comments The information contained in this document represents components of the legal health record. It is not the complete legal health record.[facility]
--- OUTSIDE RECORDS SUMMARY | 2025-08-18 21:42 | XMS_ITS | Clinical Summary ---
Author Organization [facility] Address [address] [place] [address] Care Team Providers Care Cullet Washer Name Role Phone Juan Quinones DO Primary Care Provider Surgical History Surgery Date Site/Laterality Comments OTHER SURGICAL HISTORY PROCEDURE: [place] LAMNOTMY INCL W/DCMPRSN NRV ROOT 1 INTRSPC CERVC NOSE SURGERY PROCEDURE: [place] UNLISTED PROCEDURE NOSE; COMMENT: polyps 13 procedures COLONOSCOPY 11/29/2006 PROCEDURE: [place] COLONOSCOPY FLX DX W/COLLJ SPEC WHEN PFRMD; [...] Last Done Comments Breast Cancer Screening 1970 Colorectal Cancer Screening: Colonoscopy 1970 Hepatitis B Vaccines (1 of 3 - 19+ 3-dose series) 01/03/1987 Cervical Cancer Screening: P ap Smear 01/03/1989 Pneumococcal Vaccine: 50+ Years (2 of 2 - PCV) 08/24/2007 08/24/2006 DTaP,Tdap,and Td Vaccines (2 - Td or Tdap) 08/24/2016 08/24/2006 RSV Immunization Adult Patients (1 - Risk 50-74 years 1-dose series) 01/03/2018 Zoster Vaccines (1 of 2) 01/03/2018 HIV Screening 05/22/2024 Hepatitis C Screening 05/22/2024 Social Influencers of Health Screening 05/22/2024 Depression Screening 10/24/2024 COVID-19 Vaccine ( - 2023-2 5 season) 2025 Influenza Vaccine (#1) 2025 0, 10/13/2009, 10/13/2009 [...] age to complete this topic Care Teams Cullet Washer Relationship Specialty Start Date End Date Juan Quinones DO [address] [facility] [id number] [place] [id number] PCP - General 03/14/24
--- NOTE | 2025-08-18 23:56 | ED.GENADULT ---
HPI - General Adult General Chief complaint: Upper Respiratory Symptoms Stated complaint: upper resp infection and not feeling good Time Seen by Provider: 08/18/25 23:40 Source: patient Mode of arrival: ambulatory Limitations: no limitations History of Present Illness ED Provider: Gilberto CHRISTINA HPI narrative: The patient is a 55-year-old female with a history of IBS, as well as remote history of smoking, reports diagnosis of COPD currently without any preventative or maintenance medications, presenting to the ED for evaluation of chest congestion with chest tightness and largely nonproductive cough. The patient reports she began developing symptoms on Tuesday, felt worse Tuesday, and was seen by her PCP , at which time she was diagnosed with a URI/COPD exacerbation, and treated with azithromycin and prednisone. The patient reports she has been compliant with the azithromycin and prednisone for the last 3-4 days, but reports symptoms are feeling slightly worse rather than better. The patient denies associated hemoptysis, pleurisy, abdominal pain, nausea or vomiting, dysuria, hematuria, recent sick contacts, or recent trauma. The patient reports associated diarrhea consistent with her history of IBS, without associated hematochezia or melena. Related Data Home Medications ?Medication ?Instructions ?Recorded ?Confirmed duloxetine 60 mg capsule,delayed 120 mg PO DAILY 06/30/21 release linaclotide 145 mcg capsule 145 mcg PO DAILY 06/17/25 (Linzess) meloxicam 15 mg tablet 15 mg PO DAILY 06/17/25 metformin 500 mg tablet,extended 500 mg PO BID 06/17/25 release 24 hr omeprazole 20 mg capsule,delayed 20 mg PO DAILY 06/17/25 release tizanidine 4 mg tablet 8 mg PO TID 06/17/25 Previous Rx's ?Medication ?Instructions ?Recorded doxycycline hyclate 100 mg tablet 100 mg PO BID #14 tabs 06/17/25 hydrocortisone-acetic acid 1 %-2 % 4 drp otic (ear) right TID #10 mL 06/17/25 ear drops levofloxacin 750 mg tablet 750 mg PO DAILY 7 days #7 tabs 08/19/25 Allergies Allergy/AdvReac Type Severity Reaction Status Date / Time Penicillins (PCN) Allergy Anaphylaxis Verified 08/18/25 21:05 adhesive tape AdvReac Redness of Verified 08/18/25 21:05 Skin hydrocodone AdvReac Agitated Verified 08/18/25 21:05 hydromorphone (From Dilaudid) AdvReac Nausea and Verified 08/18/25 21:05 Vomiting sulfamethoxazole (From AdvReac Nausea and Verified 08/18/25 21:05 Bactrim) Vomiting trimethoprim (From Bactrim) AdvReac Nausea and Verified 08/18/25 21:05 Vomiting Review of Systems Review of Systems: Yes all other systems are reviewed and are negative PMFSH Past Medical History Medical History Cervical vertebral fusion COPD (chronic obstructive pulmonary disease) Family History Family History Mother Lung cancer Brother Colon cancer Maternal Uncle Colon cancer Social History Social History Substance Use Type: Former Substance User Physical Exam ED Vital Signs: Vital Signs - 24 hr 08/18/25 21:03 Temperature 98 F Pulse Rate 96 Respiratory Rate 18 Pulse Oximetry 99 Oxygen Delivery Method Room Air BMI result Body Mass Index 40.0 CONSTITUTIONAL: The patient appears non-toxic, well nourished and in no acute distress. Vital signs as documented. HEAD: Atraumatic, normocephalic. EYES: EOMs grossly intact, pupils equal, conjunctiva clear, no exudate. ENT: Nares patent, no discharge. Airway patent, no audible stridor, visible mucosa is pink and moist without noted lesions. NECK: Trachea is midline, no obvious masses or gross abnormalities. CHEST: Symmetric movement, normal appearance. LUNGS: LS present throughout, there is mild rhonchi versus rales noted in the left base, otherwise CTAB. Non-labored work of breathing. CARDIAC: Regular Rhythm, S1/S2 appreciated, no murmurs, rubs or gallops. ABDOMEN: Abdomen soft and non-tender x4 quadrants, no palpable masses or organomegaly. : Deferred. EXTREMITIES: Normal tone, moves all extremities spontaneously without reported pain. No obvious acute injury or deformity noted. NEURO: Alert and oriented x3, CN II-XII appear grossly intact. Cerebellar Functioning grossly intact. No obvious sensory or motor deficits. Speech clear and appropriate. PSYCH: normal affect, appropriate eye contact, fluid speech, with appropriate response to questioning. No reported suicidality or homicidality. SKIN: Warm, dry, color appropriate, normal turgor. No rashes noted. Medications Administered Discontinued Medications Generic Name Dose Route Start Last Admin Trade Name Faheem PRN Reason Stop Dose Admin Levofloxacin 750 mg 08/19/25 00:45 08/19/25 00:52 Levofloxacin 750 Mg Tablet PO 08/19/25 00:46 750 mg ONCE ONE Administration Medical Decision Making Medical Decision Making [facility] Narrative: 12:53 AM 08/19/2025 (Dorie CHRISTINA): The patient is a 55-year-old female with a history of IBS, as well as remote history of smoking, reports diagnosis of COPD currently without any preventative or maintenance medications, presenting to the ED for evaluation of chest congestion with chest tightness and largely nonproductive cough. The patient reports she began developing symptoms on Tuesday, felt worse Tuesday, and was seen by her PCP , at which time she was diagnosed with a URI/COPD exacerbation, and treated with azithromycin and prednisone. The patient reports she has been compliant with the azithromycin and prednisone for the last 3-4 days, but reports symptoms are feeling slightly worse rather than better. The patient denies associated hemoptysis, pleurisy, abdominal pain, nausea or vomiting, dysuria, hematuria, recent sick contacts, or recent trauma. The patient reports associated diarrhea consistent with her history of IBS, without associated hematochezia or melena. On exam patient has no overt wheezing, however there is mild rales versus rhonchi noted in the left base, no pedal edema. The patient's viral swabs are negative for influenza and COVID, chest x-ray shows no focal consolidation. Patient likely suffering from bronchitis, however given the patient's lack of improvement with current therapy, and mildly averages lung sounds on exam, we will treat with Levaquin for presumed pneumonia. The patient will be discharged with instructions to follow up with PCP for re-evaluation and consideration of preventative therapy for restrictive airway disease. Admission/Observation Consideration of admission/observation: Escalation of care including admission/observation considered Lab Data [facility] Lab Attestation statement: I reviewed the patient's lab results. Labs: Lab Results 08/18/25 Range/Units 21:14 COVID-19 (PENNY) Negative (Negative) COVID-19 Clin Com See Note Influenza Type A (GONZALEZ) Negative (Negative) Influenza Type B (GONZALEZ) Negative (Negative) Influenza A & B Note See Note Radiology Impression Discussion of test interpretation with radiology: I have reviewed the radiologist's reading. Radiologist Impression: 2 view chest x-ray Comparison: None provided Findings: The lungs are clear. Normal size heart. No acute fracture. IMPRESSION: 1. No acute findings. This document has been electronically signed by: Dee Regalado MD on 08/18/2025 22:48:55 External Record Review External record reviewed: Outpatient record and Prior outpatient labs Prescription Management I considered prescription management with: Pain Medication and Antibiotic Discharge Plan Discharge Clinical Impression: Bronchitis Patient Disposition: Home, Self-Care Instructions: Acute Bronchitis (ED), Bacterial Pneumonia (ED) Additional Instructions: Thank you for choosing [facility]'s Emergency Department for your care today. Thankfully your viral swabs were negative for COVID and influenza. At this time there is no indication for admission to the hospital or continued ED observation, and it is safe to discharge you home. Your chest x-ray shows no obvious pneumonia, however given your lack of improvement in symptoms following treatment for acute bronchitis, and some congestion noted on your lung exam,, we will treat you with a a stronger antibiotic called Levaquin for suspected pneumonia. Please take this as prescribed until it is finished. You should take alternating (staggered) doses of ibuprofen 600mg and Tylenol 1000mg every 4 hours as needed for any fever or discomfort, these anti-inflammatories can also help with your cough. Please stay well hydrated and get plenty of rest. Please follow up with your primary care physician for re-evaluation, additional management of your symptoms, consideration of preventative medication to reduce the severity or frequency of acute bronchitis, and continued preventative care. If you do not have a primary care physician, please call the [facility] at [phone] to establish a new primary care physician. While waiting to establish your new primary care physician, you can call our Walk-in Care [facility] at [phone] for non-emergency needs. Please return to the emergency department if you develop a severe or sudden change in your symptoms, a fever over 100.4 that does not improve with Tylenol or Ibuprofen, recurrent vomiting, or any other new or worsening symptoms or concerns. Prescriptions: New levofloxacin 750 mg tablet 750 mg PO DAILY 7 Days Qty: 7 0RF No Action duloxetine 60 mg capsule,delayed release(DR/EC) 120 mg PO DAILY tizanidine 4 mg tablet 8 mg PO TID meloxicam 15 mg tablet 15 mg PO DAILY omeprazole 20 mg capsule,delayed release(DR/EC) 20 mg PO DAILY metformin 500 mg tablet extended release 24 hr 500 mg PO BID Linzess 145 mcg capsule 145 mcg PO DAILY hydrocortisone-acetic acid 1-2 % drops 4 drp otic (ear) right TID Qty: 10 0RF doxycycline hyclate 100 mg tablet 100 mg PO BID Qty: 14 0RF Referrals: Chloe Chilel [Other] Clinical Impression: Bronchitis Interventions: ED Discharge Assessment Last Done: 08/19/25 01:07 Print Language: Russian
[2025-08-19 01:06] VITALS: BP 125/60; PULSE 94; RESP 18; TEMP 37.1; O2SAT 96
[2025-08-19 01:07] VITALS: BP 125/60; PULSE 94; RESP 18; TEMP 37.1; O2SAT 96
== END 2025-08-19 01:07 | disposition home or self-care (01) ==
PROVIDERS: Emergency Provider Emergency Medicine
DX: R09.89 Other specified symptoms and signs involving the circulatory and respiratory systems (principal); J40 Bronchitis, not specified as acute or chronic; R07.89 Other chest pain; R05.9 Cough, unspecified; Z79.899 Other long term (current) drug therapy; Z11.52 Encounter for screening for COVID-19
CPT/HCPCS: 71046; 87502; 87635; 99283; 99284

== ENCOUNTER → 2025-08-18 21:24 | Outpatient (BNV) | payer OTHER, SELFPAY | PROVIDERS: Visit Provider Student in an Organized Health Care Education/Training Program | DX: R06.02 Shortness of breath (principal); R05.9 Cough, unspecified | CPT/HCPCS: 71046 ==